=== PATIENT | female | born 1970 | race African-American/Black ===

== ENCOUNTER 2020-04-22 17:18 | Emergency (ER) | payer BC, SELFPAY ==
--- NOTE | ~2020-04-22 | XR_ITS ---
XR chest 1V portable 04/22/2020 18:56 Indication: Weakness, shortness of breath, nausea and fever Procedure: AP portable chest Comparison: 08/10/2017 Findings: There are reticulonodular densities in the right midlung, compatible with pneumonia. Heart size normal. Left lung clear. No pleural effusion, edema or pneumothorax. No acute osseous abnormalit y. Impression: 1: Reticulonodular densities right mid lung, compatible with pneumonia. Reviewed, dictated and finalized at location A. Impression: 1: Reticulonodular densities right mid lung, compatible with pneumonia.
--- NOTE | 2020-04-22 18:02 | ECG_ITS ---
Measurements Intervals [place] Rate: 87 P: 26 DE: 156 QRS: 42 QRSD: 71 T: 29 QT: 333 QTc: 402 Interpretive Statements SINUS RHYTHM NORMAL ECG Electronically Signed On 04-22-2020 18:20:30 CDT by Christian Guillory D.O.
[2020-04-22 18:03] VITALS: BP 121/88; PULSE 93; RESP 18; TEMP 37.6; O2SAT 100
[2020-04-22 18:26] LABS: Basophils Percent Auto 0.3 % (0.2-1.2); Hematocrit 39.3 % (37.0-47.0); Hemoglobin 12.5 g/dL (12.0-15.0); Immature Granulocyte Absolute 0.01 K/mm3 (0.00-0.031); Immature Granulocyte Percent A 0.3 % (0-0.5); Lymphocytes Absolute Auto 0.96 K/mm3 (0.9-3.2); Lymphocytes Percent Auto 27.5 % (18.3-44.2); Mean Corpuscular HGB Conc 31.8 g/dl (32-36); Mean Corpuscular Hemoglobin 25.6 pg (26-34); Mean Corpuscular Volume 80.5 fl (80-100); Mean Platelet Volume 10.6 fl (7.4-10.4); Monocytes Absolute Auto 0.3 K/mm3 (0.1-0.6); Monocytes Percent Auto 9.2 % (2.6-8.5); Neutrophils Absolute Auto 2.2 K/mm3 (1.3-6.7); Neutrophils Percent Auto 62.7 % (45.5-73.1); Platelet Count Result 206 k/mm3 (150-375); Red Blood Count 4.88 M/mm3 (4.2-5.4); Red Cell Distribution Width 14.2 % (11.5-14.5); White Blood Count 3.5 K/mm3 (4.5-10.0)
[2020-04-22 18:37] LABS: Alanine Aminotransferase 25 U/L (4-35); Albumin Level 4.2 g/dL (3.5-5.1); Alkaline Phosphatase 105 U/L (38-126); Aspartate Amino Transferase 31 U/L (14-36); Bilirubin,Total 0.3 mg/dL (0.2-1.3); Blood Urea Nitrogen 11 mg/dL (7-17); Calcium 9.2 mg/dL (8.4-10.2); Carbon Dioxide 28 mmol/L (22-30); Chloride 102 mmol/L (98-107); Estimated CRCL calculation 50 ml/min; Estimated Glomerular Filt Rate > 60; Glucose 108 mg/dL (65-105); Potassium 3.8 mmol/L (3.4-5.0); Sodium 137 mmol/L (137-145)
[2020-04-22 18:38] LABS: Lactic Acid Reflex 0.6 mmol/L (0.7-2.1)
--- NOTE | 2020-04-22 20:03 | ED.GENADULT ---
HPI - General Adult General Chief complaint: Weakness Stated complaint: weak Time Seen by Provider: 04/22/20 19:43 History of Present Illness HPI narrative: Patient is a 50-year-old female who presents the ER with cough. Ongoing for the last 2 days. No shortness of breath. She has been having weakness. No body aches/fever/chills. She does work in a healthcare setting. No known COVID exposures. No alleviating factors. Related Data Allergies Allergy/AdvReac Type Severity Reaction Status Date / Time No Known Allergies Allergy Mild Verified 11/28/18 18:54 Review of Systems Review of Systems: All systems reviewed & are unremarkable except as noted in HPI and below Constitutional: Constitutional: Denies chills, Reports fatigue, Denies fever(s) and Reports weakness ENT: Denies nasal congestion and Denies sore throat Cardiovascular: Cardiovascular: Denies chest pain and Denies radiating jaw, neck or arm pain Respiratory: Respiratory: Reports cough, Denies dyspnea and Denies wheezing Gastrointestinal: Gastrointestinal: Denies abdominal pain, Denies diarrhea, Denies nausea and Denies vomiting PMF Past Medical History Medical History (Updated 04/22/20 @ 20:11 by Felton Babcock MD) Asthma Surgical History Surgical History (Updated 04/22/20 @ 20:04 by Felton Babcock MD) No history of previous surgery Family History Family History (Updated 05/12/16 @ 23:19 by DOCTOR UNKNOWN) Mother Family history of diabetes mellitus in first degree relative Social History Social History Smoking status: Never smoker Second hand tobacco smoke exposure: No Alcohol intake: never Gender identity (if verbalized by the patient): Female Exam Narrative: Exam Narrative: GENERAL: Well-appearing, well-nourished, and in no acute distress. HEAD: Normocephalic, atraumatic. ENT: Mucous membranes moist. CHEST: Clear to auscultation. No respiratory distress. HEART: Regular rate and rhythm. Normal peripheral pulses. ABDOMEN: Soft, nontender, nondistended. EXTREMITIES: Normal range of motion. No edema. SKIN: Warm, dry, no rash. NEURO: Alert and oriented x3. Course Course Emergency Course: Informed of results. We will swab for COVID, started on azithromycin and albuterol for home. Vital Signs Vital signs: Vital Signs Temperature 99.7 F H 04/22/20 18:03 Pulse Rate 93 04/22/20 18:03 Respiratory Rate 18 04/22/20 18:03 Blood Pressure 121/88 04/22/20 18:03 Pulse Oximetry 100 04/22/20 18:03 Temperature 99.7 F H 04/22/20 18:03 Pulse Rate 93 04/22/20 18:03 Respiratory Rate 18 04/22/20 18:03 Blood Pressure 121/88 04/22/20 18:03 Pulse Oximetry 100 04/22/20 18:03 Medical Decision Making Vital Signs Vital Signs: Vital Signs Temperature 99.7 F H 04/22/20 18:03 Pulse Rate 93 04/22/20 18:03 Respiratory Rate 18 04/22/20 18:03 Blood Pressure 121/88 04/22/20 18:03 Pulse Oximetry 100 04/22/20 18:03 Temperature 99.7 F H 04/22/20 18:03 Pulse Rate 93 04/22/20 18:03 Respiratory Rate 18 04/22/20 18:03 Blood Pressure 121/88 04/22/20 18:03 Pulse Oximetry 100 04/22/20 18:03 Lab Data Result diagrams: 04/22/20 18:12 04/22/20 18:12 Labs: Lab Results 04/22/20 04/22/20 04/22/20 Range/Units 18:12 18:12 18:12 WBC 3.5 L (4.5-10.0) K/mm3 RBC 4.88 (4.2-5.4) M/mm3 Hgb 12.5 (12.0-15.0) g/dL Hct 39.3 (37.0-47.0) % MCV 80.5 (80-100) fl MCH 25.6 L (26-34) pg MCHC 31.8 L (32-36) g/dl RDW 14.2 (11.5-14.5) % Plt Count 206 (150-375) k/mm3 MPV 10.6 H (7.4-10.4) fl Immature Gran % (Auto) 0.3 (0-0.5) % Neut % (Auto) 62.7 (45.5-73.1) % Lymph % (Auto) 27.5 (18.3-44.2) % [place] % (Auto) 9.2 H (2.6-8.5) % Eos % (Auto) 0.0 (0-4.4) % Baso % (Auto) 0.3 (0.2-1.2) % Lymph # (Auto) 0.96 (0.9-3.2) K/mm3 [place] # (Auto) 0.3 (0.1-0.6) K/mm3 Eos # (Auto) 0.
[2020-04-22 20:24] VITALS: BP 130/84; PULSE 69; RESP 16; TEMP 36.9; O2SAT 98
[2020-04-22 20:46] LABS: Add Urine Microscopic? YES; Appearance Urine Clear (Clear); Bacteria Urine Trace /hpf; Bilirubin Urine Negative (Negative); Blood Urine Negative (Negative); Color Urine Yellow (Yellow); Glucose Urine UA Negative (Negative); Ketones Urine Trace mg/dL (Negative); Leukocyte Esterase Ur Trace LEU/UL (Negative); Mucus Urine Moderate /lpf; Nitrate Urine Negative (Negative); Protein Urine 1+ mg/dL (Negative); Specific Grav Ur 1.029 (1.001-1.035); Squamous Epithelial Cell Urine Many /hpf (Few); Urobilinogen Urine Negative mg/dL (<2.0); WBC Urine 0-3 /hpf
[2020-04-23 13:57] LABS: SARS-CoV-2 RNA PCR Positive
== END 2020-04-22 20:47 | disposition home or self-care (01) ==
PROVIDERS: Emergency Provider Emergency Medicine
DX: U07.1 COVID-19 (principal); J12.89 Other viral pneumonia; J45.909 Unspecified asthma, uncomplicated
CPT/HCPCS: 36415; 71045; 80053; 81001; 83605; 85025; 87040; 87635; 93005; 99283; C9803; U0003

== ENCOUNTER → 2020-05-03 10:32 | Outpatient (CLI) | payer BC, SELFPAY ==
--- NOTE | ~2020-05-03 | XR_ITS ---
EXAMINATION: XR chest 2V EXAM DATE: 05/03/2020 10:47 INDICATION: Pneumonia follow-up. TECHNIQUE: Frontal and lateral projections of the chest obtained and reviewed. Comparison is made to prior examination from 04/22/2020. FINDINGS: The lungs are clear. There are no pleural effusions. The cardiomediastinal silhouette is within normal limits. There is no pneumothorax suspected. The bones and soft tissues are unremarkab le. IMPRESSION: Resolution of previously seen airspace disease. Reviewed, dictated and finalized at location A.
== END ==
PROVIDERS: PCP Emergency Medicine; Visit Provider Emergency Medicine
DX: J18.9 Pneumonia, unspecified organism (principal); R91.8 Other nonspecific abnormal finding of lung field
CPT/HCPCS: 71046

== ENCOUNTER → 2020-07-21 16:04 | Outpatient (CLI) | payer BC, SELFPAY ==
--- NOTE | ~2020-07-21 | MM_ITS ---
EXAMINATION: MM screening manju BI w summer HISTORY: Screening TECHNIQUE: Craniocaudal and mediolateral oblique 3-D tomosynthesis images were obtained and synthetic 2-D images were generated. CAD analysis was submitted and interpreted. COMPARISON: Comparison to multiple prior studies sequentially, with oldest reviewed study dated 04/2013. BREAST PARENCHYMAL COMPOSITION: There are scattered areas of fibroglandular density. FINDINGS: There is no evidence of suspicious mass, calcification, or architectural distortion to sugg est malignancy in either breast. There has been no suspicious interval change. IMPRESSION: 1. No mammographic evidence of malignancy. 2. Recommend routine screening mammography in one year. BI-RADS Category 1: Negative Reviewed, dictated and finalized at location A.
== END ==
PROVIDERS: Visit Provider Obstetrics & Gynecology
DX: Z12.31 Encounter for screening mammogram for malignant neoplasm of breast (principal)
CPT/HCPCS: 77063; 77067

== ENCOUNTER 2022-11-02 22:19 | Emergency (ER) | payer BC, SELFPAY ==
--- NOTE | ~2022-11-02 | XR_ITS ---
Lumbosacral Spine: AP and lateral views Clinical History: Pain Findings: The normal lordotic curve is maintained. The vertebral bodies and posterior elements are i ntact. The intervertebral disc spaces are preserved. The sacroiliac joints are normally outlined. Impression: No significant abnormality. Reviewed, dictated and finalized at [facility]. DIRECTOR Impression: No significant abnormality.
[2022-11-02 22:22] VITALS: BP 140/72; PULSE 71; RESP 18; TEMP 36.9; O2SAT 100
--- NOTE | 2022-11-02 23:50 | PC.NURSE ---
This RN requested both ED providers to evaluate pt but they are unavailable at the time. Provided pt with blanket. No other requests at this time.
[2022-11-03] MEDS: IBUPROFEN 400 MG TABLET 800 MG PO (00:34)
[2022-11-03 00:51] LABS: Appearance Urine Clear (Clear); Bilirubin Urine Negative (Negative); Blood Urine Trace-intact (Negative); Color Urine Yellow (Yellow); Glucose Urine UA Negative (Negative); Ketones Urine Negative (Negative); Leukocyte Esterase Ur Negative LEU/UL (Negative); Nitrate Urine Negative (Negative); Protein Urine Negative (Negative); Urobilinogen Urine 0.2 mg/dL (<2.0)
[2022-11-03 00:54] LABS: Mucus Urine Rare /lpf; Squamous Epithelial Cell Urine Moderate /hpf (Few); WBC Urine 0-3 /hpf
--- NOTE | 2022-11-03 00:54 | ED.GENADULT ---
HPI - General Adult General Chief complaint: Back Pain/Injury Stated complaint: back pain Time Seen by Provider: 11/03/22 00:22 History of Present Illness HPI narrative: Patient is a 52-year-old female who presents the emergency department with chief complaint of back pain. Patient states the other day she bent over and had some pain on the right side of her flank. The patient reports the pain is worse with movement and worse with inspiration. Patient reports no numbness no tingling denies bowel or bladder dysfunction denies saddle anesthesia. Related Data Allergies Allergy/AdvReac Type Severity Reaction Status Date / Time No Known Allergies Allergy Mild Verified 11/28/18 18:54 Review of Systems Review of Systems: A 10 system review of systems was completed on the patient and is negative except for what is stated in the HPI. Nursing and ancillary documentation was reviewed. PMFSH Past Medical History Medical History Asthma Surgical History Surgical History No history of previous surgery Family History Family History Mother Family history of diabetes mellitus in first degree relative Social History Social History Smoking status: Never smoker Second hand tobacco smoke exposure: No Alcohol intake: never Gender identity (if verbalized by the patient): Female Exam Narrative: GENERAL: Well-appearing, well-nourished, and in no acute distress. HEAD: Normocephalic, atraumatic. EYES: PERRLA and EOMI. ENT: Nares clear, no rhinorrhea or epistaxis. Mucous membranes moist. NECK: Supple. CHEST: Clear to auscultation. No respiratory distress. HEART: Regular rate and rhythm. No murmur heard. Normal peripheral pulses. ABDOMEN: Soft, nontender, nondistended, normal active bowel sounds. Back: There is mild tenderness of the paraspinous muscles of the right flank EXTREMITIES: Normal range of motion. No edema. SKIN: Warm, dry, no rash. NEURO: No focal deficits. Alert and oriented x3. No saddle anesthesia, no foot drop PSYCH: Normal mood and affect. Course Vital Signs Vital signs: Vital Signs Temperature 36.9 C 11/02/22 22:22 Pulse Rate 71 11/02/22 22:22 Respiratory Rate 18 11/02/22 22:22 Blood Pressure 140/72 11/02/22 22:22 Pulse Oximetry 100 11/02/22 22:22 Oxygen Delivery Room Air 11/02/22 22:22 Temperature 36.9 C 11/02/22 22:22 Pulse Rate 71 11/02/22 22:22 Respiratory Rate 18 11/02/22 22:22 Blood Pressure 140/72 11/02/22 22:22 Pulse Oximetry 100 11/02/22 22:22 Oxygen Delivery Room Air 11/02/22 22:22 Medical Decision Making MDM Narrative Medical decision making narrative: The patient is not showing signs of acute neurological dysfunction. Plain film x-ray of the lumbar spine showed no evidence of fracture. This was interpreted by me Urinalysis showed no evidence of UTI no evidence of blood in the urine. Vital Signs Vital Signs: Vital Signs Temperature 36.9 C 11/02/22 22:22 Pulse Rate 71 11/02/22 22:22 Respiratory Rate 18 11/02/22 22:22 Blood Pressure 140/72 11/02/22 22:22 Pulse Oximetry 100 11/02/22 22:22 Oxygen Delivery Room Air 11/02/22 22:22 Temperature 36.9 C 11/02/22 22:22 Pulse Rate 71 11/02/22 22:22 Respiratory Rate 18 11/02/22 22:22 Blood Pressure 140/72 11/02/22 22:22 Pulse Oximetry 100 11/02/22 22:22 Oxygen Delivery Room Air 11/02/22 22:22 Lab Data Labs: Lab Results 11/03/22 Range/Units 00:38 Urine Color Yellow (Yellow) Urine Appearance Clear (Clear) Urine pH 7.0 (5.0-9.0) Ur Specific [place] 1.020 (1.001-1.035) Urine Protein Negative (Negative) mg/dL Urine Glucose (UA) Negative (Negative) mg/dL Urine Ketones
[2022-11-03 00:58] LABS: Add Urine Microscopic? YES
[2022-11-03] MEDS: CYCLOBENZAPRINE HCL 10 MG TABLET PO (01:13)
[2022-11-03 01:14] VITALS: BP 124/80; PULSE 77; RESP 18; O2SAT 98
== END 2022-11-03 01:15 | disposition home or self-care (01) ==
PROVIDERS: Emergency Provider Emergency Medicine
DX: S39.012A Strain of muscle, fascia and tendon of lower back, initial encounter (principal); J45.909 Unspecified asthma, uncomplicated; X50.9XXA Other and unspecified overexertion or strenuous movements or postures, initial encounter
CPT/HCPCS: 72100; 81001; 99283; A9270

== ENCOUNTER 2023-01-16 10:20 | Outpatient (CLI) | payer BC, SELFPAY ==
--- NOTE | ~2023-01-16 | XR_ITS ---
EXAMINATION: XR chest 2V Exam Date/Time: 01/16/2023 10:30 CDT HISTORY: Preop. Asthma. Remote history of pneumonia. Comparison: 05/03/2020. RESULT: Lines, tubes, and devices: None. Lungs and pleura: Clear. Cardiomediastinal silhouette: Stable. Other: No acute osseous or upper abdominal finding. IMPRESSION: No acute cardiopulmonary process. Reviewed, dictated and finalized at location K.
== END 2023-01-16 10:21 | disposition home or self-care (01) ==
LOC: ANHIMG 10:23
PROVIDERS: PCP Family Medicine; Visit Provider Family Medicine
DX: Z01.811 Encounter for preprocedural respiratory examination (principal)
CPT/HCPCS: 71046

== ENCOUNTER 2023-01-24 12:49 | Outpatient (CLI) | payer BC, SELFPAY ==
[2023-01-24 13:39] LABS: Beta HCG Quantitative 3.74 mIU/ML
== END 2023-01-24 12:50 | disposition home or self-care (01) ==
LOC: ANHLAB 12:51
PROVIDERS: PCP Family Medicine; Visit Provider Nurse Practitioner Gerontology
DX: Z01.818 Encounter for other preprocedural examination (principal)
CPT/HCPCS: 36415; 84702

== ENCOUNTER 2023-02-22 23:43 | Emergency (ER) | payer BC, SELFPAY ==
[2023-02-22 23:47] VITALS: BP 134/74; PULSE 86; RESP 16; TEMP 36.8; O2SAT 100
[2023-02-23 00:49] LABS: Basophils Percent Auto 0.6 % (0.2-1.2); Hematocrit 28.5 % (37.0-47.0); Hemoglobin 8.7 g/dL (12.0-15.0); Immature Granulocyte Absolute 0.02 K/mm3 (0.00-0.031); Immature Granulocyte Percent A 0.4 % (0-0.5); Lymphocytes Absolute Auto 1.05 K/mm3 (0.9-3.2); Lymphocytes Percent Auto 22.1 % (18.3-44.2); Mean Corpuscular HGB Conc 30.5 g/dl (32-36); Mean Corpuscular Hemoglobin 25.7 pg (26-34); Mean Corpuscular Volume 84.3 fl (80-100); Mean Platelet Volume 8.7 fl (7.4-10.4); Monocytes Absolute Auto 0.4 K/mm3 (0.1-0.6); Monocytes Percent Auto 9.3 % (2.6-8.5); Neutrophils Absolute Auto 3.2 K/mm3 (1.3-6.7); Neutrophils Percent Auto 67.6 % (45.5-73.1); Platelet Count Result 346 k/mm3 (150-375); Red Blood Count 3.38 M/mm3 (4.2-5.4); Red Cell Distribution Width 18.2 % (11.5-14.5); White Blood Count 4.8 K/mm3 (4.5-10.0)
--- NOTE | 2023-02-23 01:28 | ED.EXTPRO ---
HPI - Extremity Problem General Chief complaint: Extremity Problem,Nontraumatic <Ayana Mccall PA-C - Last Filed: 02/23/23 02:05> Stated complaint: R leg pain/swelling <Ayana Mccall PA-C - Last Filed: 02/23/23 02:05> Time Seen by Provider: 02/23/23 00:00 <Ayana Mccall PA-C - Last Filed: 02/23/23 02:05> History of Present Illness HPI Narrative: 53-year-old female reports to the emergency department for bilateral lower extremity swelling, right greater than left for the past day. Patient reports 2 weeks ago she underwent liposuction and a [place] butt lift procedure. She denies leg pain, trauma, history of VTE, chest pain or shortness of breath, erythema, fever or rash. <Ayana Mccall PA-C - Last Filed: 02/23/23 02:05> Related Data Allergies/Adverse reactions: Allergies Allergy/AdvReac Type Severity Reaction Status Date / Time seafood Allergy Intermediate throat Uncoded 01/30/23 09:28 closes <Ayana Mccall PA-C - Last Filed: 02/23/23 02:05> Review of Systems Review of Systems: CONSTITUTIONAL: Denies fever, chills EYES: Denies visual changes, redness, or discharge. ENT: Denies rhinorrhea, congestion, sore throat, or otalgia. CARDIOVASCULAR: Denies chest pain, palpitations, or edema. RESPIRATORY: Denies cough or dyspnea. GASTROINTESTINAL: Denies abdominal pain, nausea, vomiting, or diarrhea. GENITOURINARY: Denies dysuria or hematuria. SKIN: Denies rash or itching. MUSCULOSKELETAL: See HPI. NEUROLOGIC: Denies headache, numbness, dizziness, or weakness. PSYCHIATRIC: Denies anxiety or depression. <Ayana Mccall PA-C - Last Filed: 02/23/23 02:05> [facility] Past Medical History Medical History: Medical History Asthma <Ayana Mccall PA-C - Last Filed: 02/23/23 02:05> Surgical History Surgical History: Surgical History No history of previous surgery <Ayana Mccall PA-C - Last Filed: 02/23/23 02:05> Family History Family History: Family History Mother Family history of diabetes mellitus in first degree relative <Ayana Mccall PA-C - Last Filed: 02/23/23 02:05> Social History Social History: Social History Social History: Smoking status: Never smoker Second hand tobacco smoke exposure: No Alcohol intake: current Alcohol use details: Occasionally Substance use: never Substance use type: does not use Lack of Transportation: No Lack of Food: Never True Current Housing: I Have Housing Concerned About Future Housing: No Difficulty Paying Gas/Electric Bills: No Difficulty Paying for Meds: No Currently Unemployed: No Education: Decline to Answer Difficulty w/ Childcare or Family Care: No Living arrangements: with family Occupation/Education: occupation Gender identity (if verbalized by the patient): Female Sexual Orientation (if Verbalized by the Patient): Straight or Heterosexual Spiritual care concerns: Yes Agree to blood products: Yes <Ayana Mccall PA-C - Last Filed: 02/23/23 02:05> Exam Narrative: GENERAL: Well-appearing, in no acute distress. HEAD: Normocephalic EYES: PERRLA NECK: Supple. CHEST: No respiratory distress. Clear to auscultation, no adventitious breath sounds. HEART: Regular rate and rhythm. No murmur heard. Normal peripheral pulses. EXTREMITIES: Bilateral pitting edema, right greater than left. Edema on the right leg extending from the ankle to superior aspect of the knee. Edema on the left in the ankle. Full range of motion of lower extremities. No tenderness to palpation throughout lower extremity. DP pulses 2+. Sensation intact. Cap refill less than 2. SKIN: Warm, dry, no rash. NEURO: No focal deficit
[2023-02-23] MEDS: ENOXAPARIN 80 MG/0.8 ML SYRINGE 70 MG SUB-Q (01:41)
== END 2023-02-23 01:44 | disposition home or self-care (01) ==
PROVIDERS: Emergency Provider Physician Assistant; PCP Family Medicine
DX: M79.89 Other specified soft tissue disorders (principal)
CPT/HCPCS: 36415; 85025; 96372; 99283; J1650

== ENCOUNTER 2023-02-23 07:11 | Outpatient (CLI) | payer BC, SELFPAY ==
--- NOTE | ~2023-02-23 | US_ITS ---
EXAMINATION:US venous doppler LE BI INDICATION:Leg swelling TECHNIQUE: Multiple grayscale, color flow and Doppler images of the right and left lower extremity de ep venous systems were obtained and reviewed. COMPARISON:11/29/2018 FINDINGS: The common femoral, superficial femoral and popliteal veins demonstrate normal respiratory variation, augmentation and compressibility. Color flow is also seen within the posterior tibial, pe roneal, greater saphenous and profunda veins. IMPRESSION: 1: No lower extremity deep venous thrombosis. Reviewed, dictated and finalized at location B.
== END 2023-02-23 07:12 | disposition home or self-care (01) ==
PROVIDERS: PCP Family Medicine; Visit Provider Physician Assistant
DX: M79.89 Other specified soft tissue disorders (principal)
CPT/HCPCS: 93970

== ENCOUNTER 2024-01-06 14:48 | Emergency (ER) | payer BC, SELFPAY ==
--- NOTE | ~2024-01-06 | XR_ITS ---
EXAMINATION: XR chest 1V Exam Date/Time: 01/06/2024 15:55 CDT HISTORY: Right shoulder pain Comparison: 01/16/2023. RESULT: Lines, tubes, and devices: None. Lungs and pleura: Clear. Cardiomediastinal silhouette: Stable. Other: No acute osseous or upper abdominal finding. IMPRESSION: No acute cardiopulmonary process. Reviewed, dictated and finalized at location K.
--- NOTE | ~2024-01-06 | XR_ITS ---
EXAM: XR shoulder RT min 2V DATE: 01/06/2024 16:06 HISTORY: Nontraumatic pain . COMPARISON: None available. FINDINGS: Normal mineralization. No fracture or dislocation. No lytic or blastic lesion. 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 Calcific rotator cuff tendinitis. No erosion or pe riosteal change. Soft tissues within normal limits. IMPRESSION: No acute osseous finding in the right shoulder. Reviewed, dictated and finalized at location K.
[2024-01-06 15:05] VITALS: BP 132/89; PULSE 81; RESP 17; TEMP 36.5; O2SAT 99
[2024-01-06 15:47] VITALS: BP 129/71; PULSE 76; RESP 16; TEMP 36.8; O2SAT 100
--- NOTE | 2024-01-06 15:52 | ED.UPPEXIN ---
HPI - Extremity Injury (Upper) General Chief Complaint: Extremity Injury, Upper Stated Complaint: right shoulder pain Time Seen by Provider: 01/06/24 15:51 Source: patient Mode of arrival: ambulatory Limitations: no limitations History of Present Illness HPI narrative: 53 years old female came to the emergency room with nontraumatic pain at the right shoulder noticed yesterday. Patient work in a hair salon for 30 years. She denies tingling or numbness or fever or chills or recent trauma. Limited range of motion because the pain. No chest pain or shortness of breath. Related Data Allergies Allergy/AdvReac Type Severity Reaction Status Date / Time seafood Allergy Intermediate throat Uncoded 01/30/23 09:28 closes Review of Systems Review of Systems: All systems reviewed & are unremarkable except as noted in HPI and below PMFSH Past Medical History Medical History Asthma Surgical History Surgical History No history of previous surgery Family History Family History Mother Family history of diabetes mellitus in first degree relative Social History Social History Social History: Smoking status: Never smoker Second hand tobacco smoke exposure: No Alcohol intake: current Alcohol use details: Occasionally Substance use: never Substance use type: does not use Lack of Transportation: No Lack of Food: Never True Current Housing: I Have Housing Concerned About Future Housing: No Difficulty Paying Gas/Electric Bills: No Difficulty Paying for Meds: No Currently Unemployed: No Education: Decline to Answer Difficulty w/ Childcare or Family Care: No Living arrangements: with family Occupation/Education: occupation Gender identity (if verbalized by the patient): Female Sexual Orientation (if Verbalized by the Patient): Straight or Heterosexual Spiritual care concerns: Yes Agree to blood products: Yes Exam Narrative: General appearance: Well-developed, well-nourished Skin: Normal color Head: Normocephalic, nontraumatic Eyes: Clear conjunctiva ENT: Oropharynx normal, ears normal, nose normal Neck: Supple, nontender Chest and respiratory: Airway patent, no respiratory distress, no accessory muscle use Heart: Regular rate/rhythm Abdomen: Soft, nontender, no organomegaly, quiet bowel sounds Vascular: Normal peripheral pulses, normal capillary refill. Musculoskeletal: Mild diffuse tenderness right shoulder, no bruises, no swelling, no warmth, slight limited range of motion because of pain Neurologic: Alert and oriented ?3, [place] is normal as tested, no gross motor deficit Course Vital Signs Vital signs: Vital Signs Temperature 36.5 C 01/06/24 15:05 Pulse Rate 81 01/06/24 15:05 Respiratory Rate 17 01/06/24 15:05 Blood Pressure 132/89 01/06/24 15:05 Pulse Oximetry 99 01/06/24 15:05 Temperature 36.8 C 01/06/24 15:47 Pulse Rate 76 01/06/24 15:47 Respiratory Rate 16 01/06/24 15:47 Blood Pressure 129/71 01/06/24 15:47 Pulse Oximetry 100 01/06/24 15:47 MDM - Extremity Injury (Upper) MDM Narrative Medical decision making narrative: Right shoulder rotator cuff injury is my concern, x-ray showed no acute abnormalities, discharged on naproxen and Flexeril. Imaging Data Attestation: I personally reviewed and interpreted this imaging study as follows: My impression: Impressions Shoulder X-Ray 01/06/24 16:19 IMPRESSION
[2024-01-06] MEDS: HYDROcodone/acetaminophen (*CRX) 5-325 MG TABLET 1 TAB PO (15:57)
[2024-01-06] MEDS: IBUPROFEN 600 MG TABLET PO (15:57)
[2024-01-06 18:14] VITALS: BP 127/74; PULSE 71; RESP 16; TEMP 36.7; O2SAT 98
== END 2024-01-06 18:20 | disposition home or self-care (01) ==
PROVIDERS: Emergency Provider Emergency Medicine; PCP Family Medicine
DX: M25.511 Pain in right shoulder (principal); J45.909 Unspecified asthma, uncomplicated
CPT/HCPCS: 71045; 73030; 99284; A9270

== ENCOUNTER 2024-02-21 08:41 | Outpatient (CLI) | payer BC, SELFPAY ==
[2024-02-21 09:21] LABS: Basophils Percent Auto 0.2 % (0.2-1.2); Hematocrit 37.6 % (37.0-47.0); Hemoglobin 11.7 g/dL (12.0-15.0); Lymphocytes Absolute Auto 1.12 K/mm3 (0.9-3.2); Lymphocytes Percent Auto 27.1 % (18.3-44.2); Mean Corpuscular HGB Conc 31.1 g/dl (32-36); Mean Corpuscular Hemoglobin 25.3 pg (26-34); Mean Corpuscular Volume 81.2 fl (80-100); Mean Platelet Volume 9.5 fl (7.4-10.4); Monocytes Absolute Auto 0.4 K/mm3 (0.1-0.6); Monocytes Percent Auto 9.4 % (2.6-8.5); Neutrophils Absolute Auto 2.6 K/mm3 (1.3-6.7); Neutrophils Percent Auto 63.3 % (45.5-73.1); Platelet Count Result 230 k/mm3 (150-375); Red Blood Count 4.63 M/mm3 (4.2-5.4); Red Cell Distribution Width 15.9 % (11.5-14.5); White Blood Count 4.1 K/mm3 (4.5-10.0)
[2024-02-21 09:33] LABS: Alanine Aminotransferase 24 U/L (6-35); Albumin Level 4.2 g/dL (3.5-5.1); Alkaline Phosphatase 96 U/L (38-126); Anion Gap 7 mmol/L (4-12); Aspartate Amino Transferase 24 U/L (14-36); Bilirubin,Total 0.6 mg/dL (0.2-1.3); Blood Urea Nitrogen 16 mg/dL (7-17); Calcium 9.6 mg/dL (8.4-10.2); Carbon Dioxide 26 mmol/L (22-30); Chloride 109 mmol/L (98-107); Cholesterol 204 mg/dL (0-200); Estimated Glomerular Filt Rate > 60; Glucose 100 mg/dL (65-110); HDL Direct 59 mg/dL; Potassium 3.8 mmol/L (3.4-5.0); Sodium 142 mmol/L (137-145); Triglycerides 67 mg/dL (<150)
[2024-02-21 09:44] LABS: LDL Cholesterol Direct 97 mg/dL
== END 2024-02-21 08:42 | disposition home or self-care (01) ==
LOC: ANHLAB 08:43
PROVIDERS: PCP Family Medicine; Visit Provider Family Medicine
DX: E78.2 Mixed hyperlipidemia (principal); E07.9 Disorder of thyroid, unspecified; L21.9 Seborrheic dermatitis, unspecified; R03.0 Elevated blood-pressure reading, without diagnosis of hypertension
CPT/HCPCS: 36415; 80053; 80061; 84443; 85025

== ENCOUNTER 2024-04-07 11:43 | Outpatient (CLI) | payer SELFPAY ==
--- NOTE | ~2024-04-07 | US_ITS ---
Left buttock ULTRASOUND (Doppler ultrasound interrogation techniques used as needed for this exam.) Ordering provider: Esther Oliveira PA-C History: . palpable mass, L gluteal cleft . Comparison: None. FINDINGS/impression: Multiple cystic areas are seen in the subcutaneous tissues of the left buttock. The largest cyst measures 0.7 x 0.5 x 0.8 cm. No flow seen in the cystic areas. Abscesses are less li sameera. Further evaluation advised. Reviewed, dictated and finalized at location A.
== END 2024-04-07 11:44 ==
PROVIDERS: PCP Family Medicine; Visit Provider Student in an Organized Health Care Education/Training Program
DX: R22.2 Localized swelling, mass and lump, trunk (principal)
CPT/HCPCS: 76705

== ENCOUNTER → 2024-05-20 15:30 | Outpatient (REF) | payer BC, SELFPAY | LOC: ANHLAB 15:30 | PROVIDERS: PCP Family Medicine; Visit Provider Plastic Surgery | DX: R22.2 Localized swelling, mass and lump, trunk (principal) | CPT/HCPCS: 88304 ==

== ENCOUNTER 2024-06-23 08:02 | Outpatient (CLI) | payer BC, SELFPAY ==
--- NOTE | ~2024-06-23 | MM_ITS ---
EXAMINATION: MM screening manju BI w summer HISTORY: Screening mammogram TECHNIQUE: Craniocaudal and mediolateral oblique 3-D tomosynthesis images were obtained and synthetic 2-D images were generated. CAD analysis was submitted and interpreted. COMPARISON: 07/21/2020, 03/15/2016 BREAST PARENCHYMAL COMPOSITION:Not Dense. There are scattered areas of fibroglandular density. FINDINGS: No suspicious mass, calcification, or architectural distortion are identified in either vidal ast to suggest malignancy. There has been no suspicious interval change. IMPRESSION: No mammographic evidence of malignancy. Recommend routine screening mammography in one year. BI-RADS Category 1: Negative Reviewed, dictated and finalized at location .
== END 2024-06-23 08:03 | disposition home or self-care (01) ==
LOC: ANHIMG 08:04
PROVIDERS: PCP Family Medicine; Visit Provider Nurse Practitioner Family
DX: Z12.31 Encounter for screening mammogram for malignant neoplasm of breast (principal)
CPT/HCPCS: 77063; 77067

== ENCOUNTER 2024-10-14 21:07 | Emergency (ER) | payer BC, OTHER, SELFPAY ==
[2024-10-14 21:23] VITALS: BP 153/82; PULSE 77; RESP 16; TEMP 36.6; O2SAT 100
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
[2024-10-15] MEDS: IBUPROFEN 400 MG TABLET 800 MG PO (00:57)
[2024-10-15] MEDS: methocarbamoL 750 MG TABLET 1500 MG PO (00:57)
[2024-10-15] MEDS: ACETAMINOPHEN 500 MG TABLET 1000 MG PO (00:57)
[2024-10-15 01:39] VITALS: BP 128/76; PULSE 100; RESP 16; TEMP 36.6; O2SAT 98
--- OUTSIDE RECORDS SUMMARY | 2024-10-22 01:04 | XMS_ITS | Encounter Summary ---
Author Organization [facility] Address [address] [facility] Attn: Epic Prelude ADT [place] [id number] Care Team Providers Care Academic Coordinator Name Role Phone Ozzie Pina MD Primary Care Provider [phone] Encounter Details Date Type Department Care Team (Latest Contact Info) Description 05/10/2020 Travel Social History Tobacco Use Types Packs/Day Years Used Date Smoking Tobacco: Never Assessed Sex and Gender Information Value Date Recorded Sex Assigned at Not on file Gender Identity Not on file Sexual Orientation Not on file COVID-19 Exposure Response Date Recorded In the last month, have you been in contact with someone who was confirmed or suspected to have Coronavirus / COVID-19? No / Unsure 05/10/2020 10:49 AM CDT documented as of this encounter Plan of Treatment Not on file documented as of this encounter Visit Diagnoses Not on filedocumented in this encounter Care Teams Academic Coordinator Relationship Specialty Start Date End Date Ozzie Pina MD [address] [place] [phone] PCP - General Emergency Medicine 05/10/20 documented as of this encounter
--- OUTSIDE RECORDS SUMMARY | 2024-10-22 01:04 | XMS_ITS | Encounter Summary ---
Author Organization [facility] Address [address] [facility] Attn: Epic Prelude ADT [place] [address] Care Team Providers Care Construction Recruiter Name Role Phone Ozzie Pina MD Primary Care Provider [phone] Encounter Details Date Type Department Care Team (Latest Contact Info) Description 05/18/2020 Travel Social History Tobacco Use Types Packs/Day Years Used Date Smoking Tobacco: Never Smokeless Tobacco: Never Alcohol Use Standard Drinks/Week Comments Yes 0 (1 standard drink = 0.6 oz pur e alcohol) Sex and Gender Information Value Date Recorded Sex Assigned at Not on file Gender Identity Not on file Sexual Orientation Not on file COVID-19 Exposure Response Date Recorded In the last month, have you been in contact with someone who was confirmed or suspected to have Coronavirus / COVID-19? Yes 05/18/2020 2:51 PM CDT documented as of this encounter Plan of Treatment Not on file documented as of this encounter Visit Diagnoses Not on filedocumented in this encounter Care Teams Construction Recruiter Relationship Specialty Start Date End Date Ozzie Pina MD [address] [place] [phone] PCP - General Emergency Medicine 05/10/20 documented as of this encounter
--- OUTSIDE RECORDS SUMMARY | 2024-10-22 01:04 | XMS_ITS | Encounter Summary ---
Author Organization [facility] Address [address] [place] [address] Care Team Providers Care Adhesive Sprayer Name Role Phone Ozzie Pina MD Primary Care Provider [phone] Reason for Visit * Reason Comments Establish Care Encounter Details Date Type Department Care Team (Late st Contact Info) Description 05/18/2020 2:45 PM CDT Office Visit [facility] Oncology and Hematology - [place] [address] [facility] [address] [place] [address] Kaden Adams MD [address] [facility] [address] [place] [address] Leukopenia, unspecified type (Primary Dx) Social History Tobacco Use Types Packs/Day Years [...] PM CDT documented as of this encounter Last Filed Vital Signs Vital Sign Reading Time Taken Comments Blood Pressure 141/91 05/18/2020 3:16 PM CDT Pulse 91 05/18/2020 3:16 PM CDT Temperature 36.9 ??C (98.5 ??F) 05/18/2020 3:16 PM CD T Respiratory Rate 22 05/18/2020 3:16 PM CDT Oxygen Saturation 98% 05/18/2020 3:16 PM CDT Inhaled Oxygen Concentration - - Weight 72.4 kg (159 lb 11.2 oz) 05/18/2020 3:16 PM CDT Height 166.4 cm (5' 5.5 ) 05/18/2020 3:16 PM CDT Body Mass Index 26.17 05/18/2020 3:16 PM CDT documented in this encounter Progress Notes * Kaden Adams MD - 05/18/2020 5:08 PM CDT Hematology-oncology consult Note Requesting Physician Ozzie Pina MD Primary Care Physician Ozzie Pina MD Problem list There is no problem list on file for this patient. Previous TREATMENT ? Measurable Disease ? Reason for Visit Goldy Wilder is a 50 y.o. female who was referred for consultation for leukopenia. History of present illness This is a pleasant 50-year-old -Maur[place] female who has been in good health except history of seasonal allergies went to [facility] on April 22, 2020 with symptoms of fever chills and feeling tired and fatigued. She had labs done that showed WBC count of 3.5 with normal hemoglobin and platelet count. Her COVID-19 times initially came back positive. She also had a slightly high d-dimer. She was also treated with Z-Curt that she completed April 28. He is feeling better. Denies any nausea vomiting and diarrhea constipation. Denies any fever chills. Denies any weight loss. No new lumps bumps or lymphadenopathy. No other new complaints. Past Medical History No past medical history on file. Seasonal allergies History of positive COVID-19 test Surgical History No past surgical history on file. Medications No current outpatient medications on file. No current facility-administered medications for this visit. Allergies Allergies no known allergies Immunizations: There is no immunization history on file for this patient. Family History Family History Problem Relation Name Age of Onset ??? Diabetes Mother ??? Diabetes Son Social History Social History Tobacco Use ??? Smoking status: Never Smoker ??? Smokeless tobacco: Never Used Substance Use Topics ??? Alcohol use: Yes Frequency: 2-4 times a month Review of Systems Constitutional: No fever; no night sweats; no anorexia; no weight loss; no fatique NEENT: No headache; no change in vision; no change in hearing; no sore throat; no dysphagia Respiratory: No shortness of breath; no pleuritic chest pain; no cough; no hemoptysis Cardiac: No cardiac-like chest pain; no palpitations; no orthopnea; no PND; no COLLINS Breasts: No tenderness; no masses GI: No abdominal pain; no nausea; no vomiting; no diarrhea; no hematochezia; no melena : No dysuria; no frequency; no hesitancy; no hematuria TOWER OBSERVER: Musculosketetal: no bone pain; no arthralgia; no joint swelling; no myalgia; Skin: no pruritis; no rash; no petechiae; no ecchymoses Endocrine: no polydipsia; no polyuria; no unusual weight gain Neuro: No headache; no change in vision; no sensory changes; no muscle weakness; no confusion; no seizures Psych: no anxiety; no depression; Physical Exam Vitals: As per nursing note Constitutional: Well developed, well nourished, no acute distress, non-toxic appearance Teeth and gum. No signs of infection or swelling. Eyes: PERRL, conjunctiva normal HEENT: Atraumatic, external ears normal, nose normal, oropharynx moist, no pharyngeal exudates. no sinus tenderness Neck- normal range of motion, no tenderness, supple Respiratory: No respiratory distress, normal breath sounds, no rales, no wheezing Cardiovascular: Normal rate, normal rhythm, no murmurs, no gallops, no rubs GI: Soft, nondistended, normal bowel sounds, nontender, no splenomegaly, no hepatomegaly, no mass, no rebound, no guarding : No costovertebral angle tenderness Musculoskeletal: No edema, no tenderness, no deformities. Back- no tenderness Integument: Well hydrated, no rash, Digits and nails inspection normal Lymphatic: No lymphadenopathy noted Neurologic: Alert & oriented x 3, CN 2-12 normal, normal motor function, normal sensory function, no focal deficits noted Psychiatric: Speech and behavior appropriate ? labs No results found for this or any previous visit (from the past 24 hour(s)). Labs from April 22, 2020 showed total bilirubin 0.3 AST 31 ALT 25 WBC 3.5 hemoglobin 12.5 MCV 80.5 platelet 206,000 neutrophils 63% lymphocyte 27%. Pathology ? Imaging & Other Studies Performance Status? Assessment / Plan: ? Mild leukopenia. This is a pleasant 50-year-old -Mauritian female who went to the [facility] on April 22 with complaint of fever chills and night sweats. She also had tiredness and fatigue. She was treated with Z-Curt. Her COVID-19 test came back positive. She is feeling better and deniesany complaint of night sweats fever chills and weight loss. She has no evidence of lymphadenopathy and hepatosplenomegaly on my examination. I have discussed the differential diagnosis of leukopenia with the patient that includes leukopenia secondary to recent infection, drug-induced leukopenia, autoimmune leukopenia, nutritional deficiencies including vitamin B12, folic acid and iron deficiency, liver and spleen disorders, benign essential leukopenia and less likely bone marrow disorder like myelodysplasia. I will order the necessary work-up that will include CBC with differential, CMP, RAJAN,iron studies, vitamin B12 and folic acid level and abdominal ultrasound. I do not see need for bonemarrow biopsy testing at this time. I have answered all the questions to patient satisfaction. She will be back to see me in 1 week to discuss findings and further recommendations. Thank you very much for allowing me to participate in Goldy Wilder's evaluation and management.Please feel free to contact if I can be of any further assistance in your patient???s care requiring hematology or oncology evaluation. Sincerely, ? ? Kaden Adams M.D. cell TOBACCO COUNSELING She is not a tobacco user. Kaden Adams MD ,05/18/2020 5:08 PM ? Total time spent 80 minutes, two third of the total time spent counseling patient [id number]. CC:?Ozzie Pina MD documented in this encounter Plan of Treatment Scheduled Orders Name Type Priority Associated Diagnoses Orde r Schedule RAJAN SCREEN W/REFLEX Lab Routine Leukopenia, unspecified type Ordered: 05/18/2020 CBC WITH DIFFERENTIAL Lab Routine Leukopenia, unspecified type Ordered: 05/18/2020 COMPREHENSIVE METABOLIC PANEL Lab Routine Leukopenia, unspecified type Ordered: 05/18/2020 FERRITIN Lab Routine Leukopenia, unspecified type Ordered: 05/18/2020 IRON, TIBC, AND PERCENT SATURATION Lab Routine Leukopenia, unspecified type Ordered: 05/18/2020 LACTATE DEHYDROGENASE Lab Routine Leukopenia, unspecified type Ordered: 05/18/2020 VITAMIN B12 AND FOLATE Lab Routine Leukopenia, unspecified type Ordered: 05/18/2020 documented as of this encounter Visit Diagnoses Diagnosis Leukopenia, unspecified type- Primary documented in this encounter Care Teams Adhesive Sprayer Relationship Specialty Start Date End Date Ozzie Pina MD [address] [place] [phone] PCP - General Emergency Medicine 05/10/20 documented as of this encounter
--- OUTSIDE RECORDS SUMMARY | 2024-10-22 01:04 | XMS_ITS | Clinical Summary ---
Author [facility] Address [address] [place] [address] Care Team Providers Care Maintenance Person Name Role Phone Ozzie Pina MD Primary Care Provider [phone] Allergies No known active allergies Active Problems Problem Noted Date Diagnosed Date Leukopenia 05/18/2020 Family History Medical History Relation Name Comments Diabetes Mother Diabetes Son Relation Name Status Comments Mother Alive Son Alive Social History Tobacco Use Types Packs/Day Years Used Date Smoking Tobacco: Never Smokeless Tobacco: Never Alcohol Use Standard Drinks/Week Comments Yes 0 (1 standard drink = 0.6 oz pur e alcohol) Sex and Gender Information Value Date Recorded Sex Assigned at Not on file Gender Identity Not on file Sexual Orientation Not on file Last Filed Vital Signs Vital Sign Reading [...] Mass Index 26.17 05/18/2020 3:16 PM CDT Plan of Treatment Health Maintenance Due Date Last Done Comments DTAP/TDAP/TD VACCINES (1 - Tdap) 02/07/1991 HEPATITIS B VACCINES (1 of 3 - 19+ 3-dose series) 02/07/1991 CERVICAL CANCER SCREENING 02/07/2002 BREAST CANCER SCREENING 2012 COLORECTAL SCREENING 02/07/2017 Colorectal Cancer Screening 02/07/2017 FIT-DNA Q 3 years 02/07/2017 FIT/FOBT Q 1 year 02/07/2017 Flex Sig/CT Colonography Q 5 years 02/07/2017 ZOSTER VACCINE (1 of 2) 02/07/2022 INFLUENZA VACCINE (#1) 2024 PNEUMOCOCCAL VACCINE 0-64 YEARS Aged Out No longer eligible based on patient's age to complete this topic Care Teams Maintenance Person Relationship Specialty Start Date End Date Ozzie Pina MD [address] [place] [phone] PCP - General Emergency Medicine 05/10/20
== END 2024-10-15 01:40 | disposition home or self-care (01) ==
PROVIDERS: Emergency Provider Emergency Medicine; PCP Family Medicine
DX: M79.631 Pain in right forearm (principal); M79.661 Pain in right lower leg; V89.2XXA Person injured in unspecified motor-vehicle accident, traffic, initial encounter; W22.10XA Striking against or struck by unspecified automobile airbag, initial encounter; J45.909 Unspecified asthma, uncomplicated
CPT/HCPCS: 99283; A9270

== ENCOUNTER 2025-02-16 01:15 | Day surgery (SDC) | payer BC, SELFPAY ==
[2024-05-14 09:31] VITALS: BMI 24.0
--- NOTE | 2024-09-01 12:04 | PC.NURSE ---
spoke with patient in regards to rescheduled colonoscopy. Updated patient with new date at times. Patient states she has misplaced her prep instructions, so will mail and email new instructions per patient request. Patient denies any changes to allergies, health history, or medications at this time. No further questions at this time.
--- NOTE | 2024-09-22 09:31 | SUR.PREOP ---
Patient ate solids yesterday- she is going to call the office to reschedule
[2024-11-06 09:44] VITALS: BMI 25.3
--- NOTE | 2025-02-02 14:56 | PC.NURSE ---
patient states no new medical or surgical history since previous phone call on 11/06/23
--- OUTSIDE RECORDS SUMMARY | 2025-02-16 01:20 | XMS_ITS | Clinical Summary ---
Author Organization [facility] Address [address] [place] [address] Care Team Providers Care Motion Picture Equipment Supervisor Name Role Phone Ozzie Pina MD Primary Care Provider [phone] Allergies No known active allergies Active Problems [...] drink = 0.6 oz pur e alcohol) Comments Unknown Sex and Gender Information Value Date Recorded Sex Assigned at Not on file Legal Sex Female 10:40 AM CDT Gender Identity Not on file Sexual Orientation Not on file Last Filed Vital Signs Vital Sign Reading Time Taken Comments Blood Pressure 141/91 05/18/2020 3:16 PM CDT Pulse 91 05/18/2020 3:16 PM CDT Temperature 36.9 C (98.5 F) 05/18/2020 3:16 PM CDT Respiratory Rate 22 05/18/2020 3:16 PM CDT [...] (1 of 3 - 19+ 3-dose series) 01/14 HPV/Cotest (21-29) 02/07/1993 CERVICAL CANCER SCREENING 02/07/2002 HPV/Cotest (30-65) 02/07/2002 PAP SMEAR 02/07/2002 BREAST CANCER SCREENING 2012 COLORECTAL SCREENING 02/07/2017 Colorectal Cancer Screening 02/07/2017 FIT-DNA Q 3 years 02/07/2017 FIT/FOBT Q 1 year 02/07/2017 Flex Sig/CT Colonography Q 5 years 02/07/2017 ZOSTER VACCINE (1 of 2) 02/07/2022 INFLUENZA VACCINE (#1) 2024 Care Teams Motion Picture Equipment Supervisor Relationship Specialty Start Date End Date Ozzie Pina MD [address] [place] [phone] PCP - General Emergency Medicine 05/10/20
[2025-02-16 08:28] VITALS: BP 151/87; PULSE 71; RESP 18; TEMP 36.1; O2SAT 100
[2025-02-16] MEDS: LACTATED RINGERS 1,000 ML 150 ML IV CONT (08:39)
--- NOTE | 2025-02-16 08:50 | P.PNAN_ITS ---
Anes - Initial Pre Proc Eval Procedure: Operation Date: 09/22/24 10:30 Proposed Procedures p Screening Colonoscopy - Brian Dumont MD Operation Date: 02/16/25 08:30 Proposed Procedures p Screening Colonoscopy - Brian Dumont MD Date/Time: 02/16/25 08:50 Surgeon: Brian Dumont MD Pre Op Diagnosis: Neoplasm Screening Patient Data Age: 55 Gender: F Height: 1.65 m Weight: 67.8 kg Last Vital Signs Temp 97 F L 02/16/25 08:28 Pulse 71 02/16/25 08:28 Resp 18 02/16/25 08:28 BP 151/87 H 02/16/25 08:28 Pulse Ox 100 02/16/25 08:28 O2 Del Method Room Air 02/16/25 08:28 Allergies Allergy/AdvReac Type Severity Reaction Status Date / Time seafood Allergy Intermediate throat Uncoded 02/16/25 08:26 closes Home Medications ?Medication ?Instructions ?Recorded ?Confirmed ?Type multivitamin (Daily Multi-Vitamin 1 tablet PO DAILY 01/14/24 11/03/24 History tablet) ketoconazole 2 % topical cream 1 applic topical BID #60 grams 02/12/24 11/03/24 Rx acetaminophen 500 mg tablet 1,000 mg (2 x 500 mg) PO TID PRN 10/15/24 11/06/24 Rx mattie 7 days #42 tabs ibuprofen 800 mg tablet 800 mg PO TID PRN pain 7 days #21 10/15/24 11/06/24 Rx tabs buspirone 5 mg tablet 5 mg PO BID #180 tabs 11/03/24 11/06/24 Rx montelukast 10 mg tablet 10 mg PO QHS #90 tabs 11/03/24 11/06/24 Rx (Singulair) tizanidine 2 mg tablet 2 mg PO TID PRN muscle spasticity 11/03/24 11/06/24 Rx #60 tabs amlodipine 2.5 mg tablet See Rx Instructions .Route 12/20/24 02/02/25 Rx .COMPLEX #90 tabs Patient hx anesthesia problems: none Family hx anesthesia problems: none Results Review: All pre-operative results and documents have been reviewed as part of the pre- operative evaluation. PMFSH Past Medical History Medical History Elevated BP without diagnosis of hypertension Cerumen impaction Eczema Asthma Surgical History Surgical History H/O liposuction of abdomen No history of previous surgery Family History Family History Mother Family history of diabetes mellitus in first degree relative Sibling Diabetes mellitus Social History Social History Social History: Caffeine- occasionally Smoking status: Never smoker Second hand tobacco smoke exposure: No Alcohol intake: current Alcohol use details: Occasionally Substance use: never Substance use type: does not use Lack of Transportation: No Lack of Food: Never True Current Housing: I Have Housing Concerned About Future Housing: No Difficulty Paying Gas/Electric Bills: No Difficulty Paying for Meds: No Currently Unemployed: No Education: Decline to Answer Difficulty w/ Childcare or Family Care: No Living arrangements: with family Occupation/Education: occupation Gender identity (if verbalized by the patient): Female Sexual Orientation (if Verbalized by the Patient): Straight or Heterosexual Spiritual care concerns: No Agree to blood products: Yes Anes - Eval Final PreProcedure Day of Procedure 02/16/25 08:50 Patient weight: normal Lungs: normal air movement Airway: Mallampati scale class II and special considerations (Braces. ) Neurological: alert and oriented Last oral intake: >/= 8 hours ASA classification: II Emergent: no Anesthetic plan: proceed Anesthesia type and monitoring: general GIVS and standard monitoring Results Review: All pre-operative results and documents have been reviewed as part of the pre- operative evaluation. HTN, anxiety, pt exercises walking/wts, no cp or sob. Informed Consent: The patient's anesthetic plan and its attendant risks and benefits were discussed with the patient/family/POA. Questions were solicited and answers provided to the satisfaction of the patient/family/POA.
--- NOTE | 2025-02-16 09:03 | PM.HPGS ---
History of Present Illness History of Present Illness Consent: Risks, benefits, and alternatives have been discussed and questions answered. Patient agrees to proceed with procedure. Chief complaint: Neoplasm Screening Narrative: Goldy Wilder is a 55 year old female here for first screening colonoscopy Review of Systems Review of Systems: All systems reviewed & are unremarkable except as noted in HPI and below PMFSH Past Medical History Medical History Elevated BP without diagnosis of hypertension Cerumen impaction Eczema Asthma Surgical History Surgical History H/O liposuction of abdomen No history of previous surgery Family History Family History Mother Family history of diabetes mellitus in first degree relative Sibling Diabetes mellitus Social History Social History Social History: Caffeine- occasionally Smoking status: Never smoker Second hand tobacco smoke exposure: No Alcohol intake: current Alcohol use details: Occasionally Substance use: never Substance use type: does not use Lack of Transportation: No Lack of Food: Never True Current Housing: I Have Housing Concerned About Future Housing: No Difficulty Paying Gas/Electric Bills: No Difficulty Paying for Meds: No Currently Unemployed: No Education: Decline to Answer Difficulty w/ Childcare or Family Care: No Living arrangements: with family Occupation/Education: occupation Gender identity (if verbalized by the patient): Female Sexual Orientation (if Verbalized by the Patient): Straight or Heterosexual Spiritual care concerns: No Agree to blood products: Yes Meds Home Medications and Allergies Home Medications ?Medication ?Instructions ?Recorded ?Confirmed ?Type multivitamin (Daily Multi-Vitamin 1 tablet PO DAILY 01/14/24 11/03/24 History tablet) ketoconazole 2 % topical cream 1 applic topical BID #60 grams 02/12/24 11/03/24 Rx acetaminophen 500 mg tablet 1,000 mg (2 x 500 mg) PO TID PRN 10/15/24 11/06/24 Rx mattie 7 days #42 tabs ibuprofen 800 mg tablet 800 mg PO TID PRN pain 7 days #21 10/15/24 11/06/24 Rx tabs buspirone 5 mg tablet 5 mg PO BID #180 tabs 11/03/24 11/06/24 Rx montelukast 10 mg tablet 10 mg PO QHS #90 tabs 11/03/24 11/06/24 Rx (Singulair) tizanidine 2 mg tablet 2 mg PO TID PRN muscle spasticity 11/03/24 11/06/24 Rx #60 tabs amlodipine 2.5 mg tablet See Rx Instructions .Route 12/20/24 02/02/25 Rx .COMPLEX #90 tabs Allergies Allergy/AdvReac Type Severity Reaction Status Date / Time seafood Allergy Intermediate throat Uncoded 02/16/25 08:26 closes Vital Signs Vital Signs - 24 hr 02/16/25 08:28 Temperature 97 F L Pulse Rate 71 Respiratory Rate 18 Blood Pressure 151/87 H Pulse Oximetry 100 Oxygen Delivery Room Air Exam Const: General: comfortable and no acute distress HENMT: Face/Nose/Sinus: Normal nares present Eyes: General: appearance normal, both eyes and all related structures Neck: Neck: no JVD Resp: Auscultation: clear to auscultation bilaterally Cardio: Rate: regular rate Rhythm: regular rhythm GI: Inspection: non-distended GI Palp: Yes Soft to palpation Skin: General skin exam: normal color Neuro: General: gait normal Speech: normal speech Extrem: General: normal to inspection Psych: Mental Status: mental status grossly normal Assessment and Plan Assessment and plan (1) Colon cancer screening: Code(s): Z12.11 - Encounter for screening for malignant neoplasm of colon Status: Acute Assessment and Plan: colonoscopy
[2025-02-16 09:18] VITALS: BP 93/52; PULSE 63; RESP 17; O2SAT 100
[2025-02-16 09:28] VITALS: BP 104/62; PULSE 56; RESP 19; O2SAT 100
[2025-02-16 09:38] VITALS: BP 124/63; PULSE 55; RESP 20; O2SAT 100
== END 2025-02-16 09:44 | disposition home or self-care (01) ==
PROVIDERS: Visit Provider Internal Medicine Gastroenterology
PROC: 0DJD8ZZ Inspection of Lower Intestinal Tract, Via Natural or Artificial Opening Endoscopic (ICD-10-PCS; CPT 45378; principal; 2025-02-16 08:30)
DX: Z12.11 Encounter for screening for malignant neoplasm of colon (principal)
CPT/HCPCS: 45378; J2704; J7120

== ENCOUNTER 2025-04-01 06:25 | Emergency (ER) | payer BC, SELFPAY ==
--- NOTE | ~2025-04-01 | XR_ITS ---
Right Shoulder Technique: AP and scapular Y views were obtained. Clinical History: Pain Findings: No fracture or dislocation is seen. Osseous alignment is anatomic. The glenohumeral joint i s intact. There is mild AC joint degenerative change. Calcific densities distal rotator cuff region i s compatible with calcific tendinitis.. Impression: Calcific tendinitis of the rotator cuff. Mild AC joint degenerative change. Reviewed, dictated and finalized at location M. Impression: Calcific tendinitis of the rotator cuff. Mild AC joint degenerative change.
[2025-04-01 06:30] VITALS: BP 132/79; PULSE 82; RESP 16; TEMP 36.5; O2SAT 100
[2025-04-01 06:41] VITALS: BP 132/79; PULSE 74; RESP 16; O2SAT 100
[2025-04-01] MEDS: Please add drug allergy info to patient profile. 1 EACH XX (07:36)
[2025-04-01] MEDS: KETOROLAC (*BKC) 60 MG/2 ML VIAL IM (07:37)
--- OUTSIDE RECORDS SUMMARY | 2025-04-01 07:40 | XMS_ITS | Clinical Summary ---
Author Organization [facility] Juan Daniel Hugginsannemarie Address [address] [address] Care Team Providers Care Lpn Home Health Name Role Phone Ozzie Pina MD Primary Care Provider [phone] Allergies No known active allergies Active Problems [...] 3:16 PM CDT Height 166.4 cm (5' 5.5) 05/18/2020 3:16 PM CDT Body Mass Index [...] 02/07/2022 INFLUENZA VACCINE (#1) 2024 Care Teams Lpn Home Health Relationship Specialty Start Date End Date Ozzie Pina MD [address] [place] [phone] PCP - General Emergency Medicine 05/10/20
--- NOTE | 2025-04-01 07:47 | ED.UPPEXIN ---
HPI - Extremity Injury (Upper) General Chief Complaint: Extremity Injury, Upper Stated Complaint: R shoulder injury Time Seen by Provider: 04/01/25 06:59 History of Present Illness HPI narrative: Patient is a 55-year-old female who presents ER with right shoulder pain. Ongoing over last week. Has had issues with the shoulder for several months. Initially seen in the ER in October. She has tried Tylenol and a muscle relaxer without improvement. No known trauma or injury. She has pain with external rotation of the right shoulder as well as forward flexion. Has pain with palpation of the deltoid anterior shoulder joint. No bruising/rash. Related Data Home Medications ?Medication ?Instructions ?Recorded ?Confirmed ?Last Taken ?Type multivitamin (Daily Multi-Vitamin 1 tablet PO DAILY 01/14/24 11/03/24 Unknown History tablet) Allergies Allergy/AdvReac Type Severity Reaction Status Date / Time seafood Allergy Intermediate throat Uncoded 04/01/25 06:33 closes Review of Systems Review of Systems: All systems reviewed & are unremarkable except as noted in HPI and below Constitutional: Constitutional: Reports no additional constitutional complaints ENT: Reports system reviewed and no additional complaints, except as documented Cardiovascular: Cardiovascular: Reports no additional cardiovascular complaints Respiratory: Respiratory: Reports no additional respiratory complaints Musculoskeletal: Musculoskeletal: Reports no additional musculoskeletal complaints Integumentary/Breasts: Skin/Breast: Reports system reviewed and no additional complaints, except as docu PMFSH Past Medical History Medical History Elevated BP without diagnosis of hypertension Cerumen impaction Eczema Asthma Surgical History Surgical History H/O liposuction of abdomen No history of previous surgery Family History Family History Mother Family history of diabetes mellitus in first degree relative Sibling Diabetes mellitus Social History Social History Social History: Caffeine- occasionally Smoking status: Never smoker Second hand tobacco smoke exposure: No Alcohol intake: current Alcohol use details: Occasionally Substance use: never Substance use type: does not use Lack of Transportation: No Lack of Food: Never True Current Housing: I Have Housing Concerned About Future Housing: No Difficulty Paying Gas/Electric Bills: No Difficulty Paying for Meds: No Currently Unemployed: No Education: Decline to Answer Difficulty w/ Childcare or Family Care: No Living arrangements: with family Occupation/Education: occupation Gender identity (if verbalized by the patient): Female Sexual Orientation (if Verbalized by the Patient): Straight or Heterosexual Spiritual care concerns: No Agree to blood products: Yes Exam Narrative: GENERAL: Well-appearing, well-nourished, and in no acute distress. HEAD: Normocephalic, atraumatic. CHEST: Clear to auscultation. No respiratory distress. HEART: Regular rate and rhythm. Normal peripheral pulses. EXTREMITIES: Mild tenderness right anterior shoulder and deltoid. Pain with external rotation forward flexion with decreased range of motion. MV intact right upper extremity. SKIN: Warm, dry, no rash. NEURO: Alert and oriented x3. PSYCH: Normal mood and affect. Course Course Emergency Course: Calcific tendinitis on x-ray. Patient educated on diagnosis and treatment plan. Follow-up with orthopedic surgery. Scheduled anti-inflammatories muscle relaxers as well as a sling for comfort. May require joint injection or procedure. Vital Signs Vital signs: Vital Signs Temperature 97.7 F 04/01/25 06:30 Pulse Rate 82 04/01/25 06:30 Respiratory Rate 16 04/01/25 06:30 Blood Pressure 132/79 04/01/25 06:30 Pulse Oximetry 100 04/01/25 06:30 Oxygen Delivery Room Air 04/01/25 06:30 Temperature 97.7 F 04/01/25 06:30 Pulse Rate 74 04/01/25 06:41 Respiratory Rate 16 04/01/25 06:41 Blood Pressure 132/79 04/01/25 06:41 Pulse Oximetry 100 04/01/25 06:41 Oxygen Delivery Room Air 04/01/25 06:30 MDM - Extremity Injury (Upper) Imaging Data Radiologist's impression: ITS Impressions Shoulder X-Ray 04/01/25 07:46 Impression: Calcific tendinitis of the rotator cuff. Mild AC joint degenerative change. Discharge Plan Discharge Clinical Impression: Calcific shoulder tendinitis, Frozen shoulder Patient Disposition: Home Condition: Stable Instructions: Adhesive Capsulitis (ED) Additional Instructions: Follow-up with orthopedic surgery for further treatment and evaluation. Return the ER if you have new injury, you have chest pain with shortness of breath, or you have additional concerns. Patient Language: Spanish Prescriptions: New cyclobenzaprine 10 mg tablet 10 mg PO TID PRN (Reason: muscle spasm) Qty: 20 0RF naproxen 375 mg tablet 375 mg PO BID Qty: 14 0RF No Action ketoconazole 2 % cream 1 applic topical BID Qty: 60 4RF tizanidine 2 mg tablet 2 mg PO TID PRN (Reason: muscle spasticity) Qty: 60 0RF montelukast [Singulair] 10 mg tablet 10 mg PO QHS Qty: 90 1RF buspirone 5 mg tablet 5 mg PO BID Qty: 180 1RF multivitamin [Daily Multi-Vitamin] Tablet 1 tablet PO DAILY acetaminophen 500 mg tablet 1,000 mg PO TID PRN (Reason: mattie) 7 Days Qty: 42 0RF ibuprofen 800 mg tablet 800 mg PO TID PRN (Reason: pain) 7 Days Qty: 21 0RF amlodipine 2.5 mg tablet See Rx Instructions .ROUTE .COMPLEX Qty: 90 1RF Dose Instruction: TAKE 1 TABLET BY MOUTH EVERY DAY Rx Instructions: TAKE 1 TABLET BY MOUTH EVERY DAY Follow-up/Referrals: Harry Storm MD [Physician] - 1 Week UNKNOWN,DOCTOR [Primary Care Provider] -
== END 2025-04-01 08:50 | disposition home or self-care (01) ==
PROVIDERS: Emergency Provider Emergency Medicine
DX: M75.31 Calcific tendinitis of right shoulder (principal); M75.01 Adhesive capsulitis of right shoulder
CPT/HCPCS: 73030; 96372; 99283; A4565; J1885